=== PATIENT | female | born 1955 | race Caucasian/White ===

== ENCOUNTER 2020-02-22 06:15 | Day surgery (SDC) | payer MEDICARE, BC ==
[~2020-02-22] VITALS: Ht 172.7 cm; Wt 52.7 kg
--- NOTE | ~2020-02-22 | OP ---
PATIENT NAME: FERNANDO GUTIERREZ MEDICAL RECORD: [id number] LOCATION:[facility] ADMISSION DATE: SURGEON: MIMI LACEY DO DATE OF OPERATION: 02/22/2020 PROCEDURE: EGD with biopsies and balloon dilation. INDICATIONS FOR PROCEDURE: Dysphagia, acid reflux. SCOPE: Olympus video gastroscope. MEDICATIONS: Propofol 240 mg IV per anesthesia. ESTIMATED BLOOD LOSS: Minimal. COMPLICATIONS: None. FINDINGS: Informed consent was given. The patient was made comfortable with the above medication. After reaching an adequate level of sedation by slow IV push, the patient was placed on her left side. The endoscope was advanced under direct visualization through the mouth to the second portion of duodenum with ease. The upper, middle, and lower thirds of the esophagus appeared normal. Cold forceps biopsies were taken from the mid esophagus to rule out the presence of eosinophils. At the GE junction, there was some mild esophageal stenosis and changes consistent with LA class A reflux-induced esophagitis. Cold forceps biopsies were taken from the GE junction and the site was also dilated using a CRE balloon through the endoscope up to 20 mm maximum diameter successfully. The endoscope was advanced beyond the GE junction into the stomach and retroflexed to view the cardia, where a very small sliding hiatal hernia was present. The fundus and body of the stomach appeared normal. In the antrum and prepyloric regions, there was some erythema and granularity consistent with mild chronic gastritis. Cold forceps biopsies were taken from the antrum and incisura to submit for histopathology and to rule out the presence of H. pylori. The endoscope was advanced beyond the pylorus into the duodenum, which appeared normal to the second portion. The endoscope was then withdrawn from the patient. The patient tolerated the procedure well and there were no complications. IMPRESSION: 1. LA class A reflux-induced esophagitis. 2. Mild esophageal stenosis located at the GE junction, status post dilation to 20 mm. 3. Mild chronic gastritis changes. PLAN AND RECOMMENDATIONS: 1. Discharge home when recovery parameters are met. 2. Follow up biopsy specimen results. 3. GERD diet and reflux precautions. 4. Omeprazole 40 mg daily times 60 days. 5. Follow up in approximately 4-6 weeks. If the dysphagia persist, I would recommend esophageal manometry to rule out dysmotility. TRANSINT:[id number] Voice Confirmation ID: [id number] DOCUMENT ID: [id number] OPERATIVE REPORT [id number] FERNANDO GUTIERREZ NATHAN A DO CC: [id number] DICTATION DATE: 02/22/20821 TERRITORY ACCOUNT REPRESENTATIVE: 02/22/20 08 [facility] [address] [id number]
[2020-02-22 07:00] LABS: HEMATOCRIT 39.8 % (36.0-48.0); HEMOGLOBIN 12.8 g/dL (12-16); MCH 31.5 pg (26.0-34.0); MCHC 32.2 g/dL (31.0-37.0); MEAN PLATELET VOLUME 10.5 fL (7.4-10.4); RBC 4.06 10x6/uL (4.00-5.40); RDW 12.6 % (11.5-14.5); WBC 4.9 10x3/uL (4.8-10.8)
[2020-02-22 07:40] VITALS: BP 109/59; Ht 172.7 cm; Wt 52.7 kg
[2020-02-22] MEDS ORDERED: SYNTHROID75 MCG PO (07:48)
[2020-02-22] MEDS ORDERED: ESTRACE1 MG PO (07:49)
[2020-02-22] MEDS ORDERED: VITAMIN D1000 UNI1 PO (07:50)
[2020-02-22] MEDS ORDERED: ZYRTEC10 MG PO (07:50)
[2020-02-22] MEDS ORDERED: VITAMIN B-12250 MC3 PO (07:51)
[2020-02-22] MEDS ORDERED: POTASSIUM CHLOR8 ME1 PO (07:51)
--- NOTE | 2020-02-22 08:51 | NUR ---
0835-RECD TO ROOM. ALERT. IV PATENT. VOMACY IN TO REPORT PROCEDURE AND FINDINGS.
--- NOTE | 2020-02-22 09:17 | NUR ---
0905-DISCHARGED VIA WHEELCHAIR TO SPOUSE.
== END 2020-02-22 09:05 | disposition home or self-care (01) ==
LOC: D.OPS 06:15
PROVIDERS: ATTEND Internal Medicine Gastroenterology
DX: R13.10 Dysphagia, unspecified (principal); K21.0 Gastro-esophageal reflux disease with esophagitis; K22.2 Esophageal obstruction; E07.9 Disorder of thyroid, unspecified; K59.00 Constipation, unspecified